=== PATIENT | female | born 1975 | race Caucasian/White ===

== ENCOUNTER 2018-08-07 12:11 | Day surgery (SDC) | payer MEDICAID ==
[2018-08-05 11:01] LABS: Basophils # (auto) 0 uL; Basophils % (auto) 0.7 % (0.0-2.0); Eosinophils # (auto) 0.1 uL; Eosinophils % (auto) 1.3 % (0.0-7.0); Hematocrit 44.7 % (36.0-46.0); Hemoglobin 14.8 g/dL (12.2-16.2); Lymphocytes # (auto) 1.9 uL; Lymphocytes % (auto) 35.2 % (10.0-50.0); Mean Corpuscular Hemoglobin 29.3 pg (28.0-32.0); Mean Corpuscular Hgb Conc. 33.1 g/dL (32.0-36.0); Mean Corpuscular Volume 88.4 fL (80.0-100.0); Monocytes # (auto) 0.4 uL; Monocytes % (auto) 7.6 % (0.0-12.0); Neutrophils % (auto) 55.2 % (37.0-80.0); Nucleated Red Blood Cells % 0.3 %; Platelet Count (auto) 202 10^3/uL (140-450); Red Blood Cells 5.06 10^6/uL (4.0-5.20); Red Cell Distribution Width 15.4 % (11.8-14.3); White Blood Cell 5.5 10^3/uL (4.4-10.8)
[2018-08-05 11:10] LABS: Albumin 3.9 g/dL (3.4-5.0); Calcium 9.1 mg/dL (8.5-10.1); Potassium 3.5 mmol/L (3.5-5.1)
[2018-08-05 11:16] LABS: BUN/Creatinine Ratio 18.1; Bilirubin, Total 0.5 mg/dL (0.2-1.0); Total Protein 8.6 g/dL (6.4-8.2)
[2018-08-05 11:28] LABS: INR 0.95 (0.9-1.15); Partial Thromboplastin Time 22.6 sec (23.78-33.04); Prothrombin Time 10.2 sec (9.27-12.13)
[2018-08-05 11:30] LABS: Urine Bacteria NONE SEEN /hpf (None Seen); Urine Blood Negative /uL (Negative); Urine Mucus FEW (None Seen); Urine Specific Gravity 1.023 (1.001-1.035); Urine WBC 2 /hpf (0 - 5)
[~2018-08-07] VITALS: Ht 162.6 cm; Wt 117.9 kg
[~2018-08-07 12:11] MED LIST: ACE3T PO; BECL40AE11 IN; METO25TA5 PO
[2018-08-07] MEDS ORDERED: ceFAZolin 1GM/50ML 50 ML IV ONE (14:00)
[2018-08-07] MEDS ORDERED: LIDOCAINE 1% HCL (LOCAL ANESTH.) INJ 20ML MDV ONE (14:46)
[2018-08-07] MEDS ORDERED: BUPIVACAINE HCL 50 ML ONE (14:46)
[2018-08-07] MEDS ORDERED: KETOROLAC TROMETH 30 MG/ML 1ML VIAL IV ONE (15:00)
[2018-08-07] MEDS ORDERED: METOCLOPRAMIDE HCL 5MG/ml INJ 2ml VIAL IV ONE (15:00)
[2018-08-07] MEDS ORDERED: PROPOFOL 10 MG/ML 20 ML IV ONE (15:01)
[2018-08-07] MEDS ORDERED: ONDANSETRON HCL 4 MG/2 ML VIAL ONE (15:03)
[2018-08-07] MEDS ORDERED: MIDAZOLAM HCL 1MG/1ML-2 ML VIAL ONE (15:03)
[2018-08-07] MEDS ORDERED: fentaNYL CITRATE 100 MCG/2 ML VL ONE (15:03)
[2018-08-07] MEDS: HYDROmorphone HCL 2 MG/ML VL IV PRN ×2 (16:48→17:01)
[2018-08-07 17:10] VITALS: BP 128/75
== END 2018-08-07 19:03 | disposition home or self-care (01) ==
LOC: SUR 12:11
PROVIDERS: ATTEND Podiatrist
DX: S93.431A Sprain of tibiofibular ligament of right ankle, initial encounter (principal); J45.909 Unspecified asthma, uncomplicated; G47.33 Obstructive sleep apnea (adult) (pediatric); E66.9 Obesity, unspecified; Z68.41 Body mass index [BMI] 40.0-44.9, adult; Z98.890 Other specified postprocedural states; Z79.899 Other long term (current) drug therapy; X58.XXXA Exposure to other specified factors, initial encounter; Y93.89 Activity, other specified; Y92.89 Other specified places as the place of occurrence of the external cause; Y99.8 Other external cause status
CPT/HCPCS: 27695; 36415; 80053; 81001; 84702; 85025; 85610; 85730; J0690; J1170; J1885; J2001; J2250; J2405; J2704; J3010; J3490

== ENCOUNTER 2022-01-11 09:34 | Day surgery (SDC) | payer MEDICAID ==
[2022-01-04 15:06] LABS: Basophils # (auto) 0.2 10 ^3/uL (0-0.2); Eosinophils # (auto) 0.1 10 ^3/uL (0-0.8); Hematocrit 37.4 % (36.0-46.0); Lymphocytes # (auto) 1.7 10 ^3/uL (0.4-5.4); Monocytes # (auto) 0.4 10 ^3/uL (0-1.3); Neutrophils # (auto) 6.1 10 ^3/uL (1.6-8.6); White Blood Cell 8.5 10^3/uL (4.4-10.8)
[2022-01-04 15:08] LABS: Basophils % (auto) 1.9 % (0.0-2.0); Eosinophils % (auto) 1.7 % (0.0-7.0); Lymphocytes % (auto) 19.6 % (10.0-50.0); Mean Corpuscular Hemoglobin 26.3 pg (28.0-32.0); Monocytes % (auto) 4.3 % (0.0-12.0); Neutrophils % (auto) 72.5 % (37.0-80.0); Red Blood Cells 4.56 10^6/uL (4.0-5.20); Red Cell Distribution Width 16.8 % (11.8-14.3)
[2022-01-04 15:13] LABS: Urine Bacteria NONE SEEN /hpf (None Seen); Urine Blood 1+ /uL (Negative); Urine Mucus FEW (None Seen); Urine Specific Gravity 1.026 (1.001-1.035); Urine WBC <1 /hpf (0 - 5)
[2022-01-04 15:21] LABS: INR 0.94 (0.9-1.15); Partial Thromboplastin Time 24.5 sec (24.6-33.4)
[2022-01-04 15:38] LABS: Calcium 8.2 mg/dL (8.5-10.1); Potassium 3.6 mmol/L (3.5-5.1)
[2022-01-04 15:42] LABS: BUN/Creatinine Ratio 13.8; Bilirubin, Total 0.4 mg/dL (0.2-1.0); Total Protein 7.7 g/dL (6.4-8.2)
[~2022-01-11] VITALS: Ht 162.6 cm; Wt 104.3 kg
[~2022-01-11 09:34] MED LIST changes: -ACE3T PO; +ALBU0.084 IN; +ALBUAER3 IN; +COLC1TAB3 PO; +CYCL-837 PO; +HYDR25CA PO; +MELO1TAB56 PO
[2022-01-11] MEDS ORDERED: PHENYLEPHRINE HCL 10 MG/ML VL IV ONE (09:35)
[2022-01-11] MEDS ORDERED: ceFAZolin 1GM/50ML 50 ML IV ONE ×2 (10:08→10:29)
[2022-01-11] MEDS ORDERED: MEPERIDINE HCL (25 MG/ML) 1ML VIAL ONE (10:47)
[2022-01-11] MEDS ORDERED: MIDAZOLAM HCL 2MG/2ML 2ml VIAL (1mg/ml) ONE (10:47)
[2022-01-11] MEDS ORDERED: fentaNYL CITRATE 100 MCG/2 ML VL ONE (10:47)
[2022-01-11] MEDS ORDERED: LIDOCAINE 1%HCL (LOCAL ANESTH) 10 ML MDV ONE (11:01)
[2022-01-11] MEDS ORDERED: ROPIVACAINE 0.5% (5MG/ML) 20ML AMPULE IJ ONE (11:02)
[2022-01-11] MEDS ORDERED: ePHEDrine SULFATE 50 MG/ML AMP IV PRN (11:30)
[2022-01-11] MEDS ORDERED: METOCLOPRAMIDE HCL 5MG/ml INJ 2ml VIAL IV PRN (11:30)
[2022-01-11] MEDS ORDERED: LABETALOL HCL 5 MG/ML 4ML SYRINGE IV PRN (11:30)
[2022-01-11] MEDS ORDERED: ONDANSETRON HCL 4 MG/2 ML VIAL IV PRN (11:30)
[2022-01-11] MEDS ORDERED: MIDAZOLAM HCL 2MG/2ML 2ml VIAL (1mg/ml) IV PRN (11:30)
[2022-01-11] MEDS ORDERED: MORPHINE SULFATE 4 MG/ML SYR/VIAL IV PRN (11:30)
[2022-01-11] MEDS ORDERED: hydrALAZINE HCL 20 MG/ML VL IV PRN (11:30)
[2022-01-11] MEDS ORDERED: DexAMETHasone SOD PHOS 10MG/1ML VIAL INJ ONE (11:38)
[2022-01-11] MEDS ORDERED: PROPOFOL 10 MG/ML 20 ML IV ONE (11:47)
[2022-01-11] MEDS ORDERED: IPRATROPIUM BROM 0.5 MG/2.5ML INH SOL NEB STA (12:38)
[2022-01-11] MEDS ORDERED: ALBUTEROL SULF 2.5 MG/0.5ML(0.5%) NEB SOLN NEB STA (12:38)
[2022-01-11] MEDS: HYDROmorphone HCL 2 MG/ML VL/or syr IV PRN ×2 (12:51→13:05)
[2022-01-11 13:40] VITALS: BP 121/94
[2022-01-12] MEDS ORDERED: PROPOFOL 100 ML IV ONE (09:47)
== END 2022-01-11 14:00 | disposition home or self-care (01) ==
LOC: SUR 09:34
PROVIDERS: ATTEND Podiatrist
DX: S93.412A Sprain of calcaneofibular ligament of left ankle, initial encounter (principal); I10 Essential (primary) hypertension; J45.909 Unspecified asthma, uncomplicated; E66.01 Morbid (severe) obesity due to excess calories; G89.29 Other chronic pain; Z20.822 Contact with and (suspected) exposure to COVID-19; Z68.41 Body mass index [BMI] 40.0-44.9, adult; X58.XXXA Exposure to other specified factors, initial encounter; Y92.89 Other specified places as the place of occurrence of the external cause; Y93.89 Activity, other specified; Y99.8 Other external cause status
CPT/HCPCS: 27698; 36415; 80053; 81001; 81025; 84702; 85025; 85610; 85730; 94640; J0690; J1100; J1170; J2001; J2175; J2250; J2370; J2704; J2795; J3010; J7644; U0003

== ENCOUNTER 2023-05-14 12:02 | Emergency (ER) | payer MEDICAID ==
[~2023-05-14] VITALS: Ht 162.6 cm; Wt 97.0 kg
[~2023-05-14 12:02] MED LIST changes: +MELO-335 PO; -MELO1TAB56 PO
[2023-05-14 13:38] LABS: Urine Bacteria NONE SEEN /hpf (None Seen); Urine Blood 1+ /uL (Negative); Urine Clarity HAZY (Clear); Urine Color Yellow (Yellow); Urine Mucus FEW (None Seen); Urine Protein, UAD 1+ (Negative); Urine Specific Gravity 1.034 (1.001-1.035); Urine WBC 2 /hpf (0 - 5)
[2023-05-14 14:11] LABS: Hematocrit 41.6 % (36.0-46.0); Hemoglobin 13.1 g/dL (12.2-16.2); Mean Corpuscular Hemoglobin 25.3 pg (28.0-32.0); Mean Corpuscular Hgb Conc. 31.6 g/dL (32.0-36.0); Mean Corpuscular Volume 80.1 fL (80.0-100.0); White Blood Cell 26.9 10^3/uL (4.4-10.8)
[2023-05-14 14:16] LABS: Red Cell Distribution Width 21.4 % (11.8-14.3)
[2023-05-14 14:18] LABS: Basophils % (manual) 0 (0.0-2.0); Blast Cells 0; Metamyelocytes % 0; Myelocytes % 0; Promyelocytes % 0; Reactive Lymphocytes 0
[2023-05-14 14:25] LABS: Alanine Aminotransferase 29 U/L (7-40); Albumin 4.2 g/dL (3.2-4.8); Alkaline Phosphatase 61 U/L (46-116); Anion Gap 6 (5-15); Aspartate Aminotransferase 42 U/L (13-40); BUN/Creatinine Ratio 11.3 (10.0-20.0); Blood Urea Nitrogen 9 mg/dL (9-23); Calcium 9.5 mg/dL (8.5-10.1); Carbon Dioxide 28 mmol/L (20-30); Chloride 104 mmol/L (98-107); Glucose 106 mg/dL (74-106); Potassium 3.2 mmol/L (3.5-5.1); Sodium 138 mmol/L (136-145)
[2023-05-14 14:26] LABS: Bilirubin, Total 0.8 mg/dL (0.2-1.0); Total Protein 7.8 g/dL (5.7-8.2)
[2023-05-14 15:54] LABS: Band Neutrophils % (manual) 11; Eosinophils % (manual) 1 (0-7); Lymphocytes % (manual) 11 (10.0-50.0); Monocytes % (manual) 4 (0-12)
[2023-05-14 15:55] LABS: Platelet Estimate Adequate
[2023-05-14 16:12] VITALS: BP 159/83; PULSE 71; RESP 17; TEMP 97.6; O2SAT 100
== END 2023-05-14 16:19 | disposition home or self-care (01) ==
LOC: ER 12:02
DX: R79.1 Abnormal coagulation profile (principal); I10 Essential (primary) hypertension; M10.9 Gout, unspecified; J45.909 Unspecified asthma, uncomplicated; Z86.2 Personal history of diseases of the blood and blood-forming organs and certain disorders involving the immune mechanism; Z79.899 Other long term (current) drug therapy
CPT/HCPCS: 36415; 80053; 81001; 85007; 85025; 85027

== ENCOUNTER 2023-09-10 14:43 | Emergency (ER) | payer MEDICAID ==
[~2023-09-10] VITALS: Ht 160 cm; Wt 100.0 kg
[~2023-09-10 14:43] MED LIST changes: -MELO-335 PO; +MELO15TA29 PO
[2023-09-10 21:16] LABS: Hemoglobin 13.1 g/dL (12.2-16.2); Mean Corpuscular Hgb Conc. 31.3 g/dL (32.0-36.0)
[2023-09-10 21:18] LABS: Hematocrit 41.7 % (36.0-46.0); Mean Corpuscular Hemoglobin 25.7 pg (28.0-32.0); Mean Corpuscular Volume 82.2 fL (80.0-100.0); Red Blood Cells 5.08 10^6/uL (4.0-5.20)
[2023-09-10 21:30] LABS: Red Cell Distribution Width 20.4 % (11.8-14.3)
[2023-09-10 21:32] LABS: Alanine Aminotransferase 14 U/L (7-40); Albumin 4.3 g/dL (3.2-4.8); Alkaline Phosphatase 67 U/L (46-116); Anion Gap 8 (5-15); Aspartate Aminotransferase 37 U/L (13-40); BUN/Creatinine Ratio 10.7 (10.0-20.0); Blood Urea Nitrogen 9 mg/dL (9-23); Calcium 9.8 mg/dL (8.5-10.1); Carbon Dioxide 25 mmol/L (20-30); Chloride 105 mmol/L (98-107); Glucose 115 mg/dL (74-106); Potassium 3.4 mmol/L (3.5-5.1); Sodium 138 mmol/L (136-145)
[2023-09-10 21:33] LABS: Bilirubin, Total 0.5 mg/dL (0.2-1.0); Total Protein 8.3 g/dL (5.7-8.2)
[2023-09-10 21:37] LABS: Basophils % (manual) 0 (0.0-2.0); Blast Cells 0; Promyelocytes % 0; White Blood Cell 48.4 10^3/uL (4.4-10.8)
[2023-09-10 22:15] LABS: Band Neutrophils % (manual) 17; Lymphocytes % (manual) 8 (10.0-50.0)
[2023-09-10 22:16] LABS: Anisocytosis Moderate; Eosinophils % (manual) 2 (0-7); Metamyelocytes % 7; Monocytes % (manual) 4 (0-12); Myelocytes % 3; Platelet Estimate Increased; Reactive Lymphocytes 2
[2023-09-10 22:17] LABS: Macrocytosis Slight
[2023-09-10 22:18] LABS: Large Platelets FEW
[2023-09-10] MEDS ORDERED: CYCL-837 PO (22:29)
[2023-09-11] MEDS ORDERED: HYDR-4902 PO (00:32)
[2023-09-11] MEDS: KETOROLAC TROMETH 30 MG/ML 1ML VIAL IM ONE (00:34)
[2023-09-11 00:36] VITALS: BP 154/63; PULSE 62; RESP 18; TEMP 98.3; O2SAT 100
== END 2023-09-11 00:46 | disposition home or self-care (01) ==
LOC: EDBD 14:43 → ER 14:43
DX: S33.5XXA Sprain of ligaments of lumbar spine, initial encounter (principal); I10 Essential (primary) hypertension; M10.9 Gout, unspecified; J45.909 Unspecified asthma, uncomplicated; M19.90 Unspecified osteoarthritis, unspecified site; Z86.2 Personal history of diseases of the blood and blood-forming organs and certain disorders involving the immune mechanism; Z98.890 Other specified postprocedural states; Z79.899 Other long term (current) drug therapy; X58.XXXA Exposure to other specified factors, initial encounter; Y93.89 Activity, other specified; Y92.89 Other specified places as the place of occurrence of the external cause; Y99.8 Other external cause status
CPT/HCPCS: 36415; 80053; 85007; 85027; 96372; 99283; J1885